=== PATIENT | male | born 1985 | race Caucasian/White ===

== ENCOUNTER 2020-12-04 21:55 | Observation (INO) ==
[2020-12-04 23:09] LABS: Basophils # 0.1 K/mcL (0.0-0.2); Basophils % 0.5 %; Eosinophils % 0.1 %; Hematocrit 43.6 % (37.5-50.1); Hemoglobin 14.6 g/dL (12.9-16.9); Immature Granulocytes % 0.3 % (0-4); Lymphocytes # 2.5 K/mcL (0.6-4.6); Lymphocytes % 16.1 %; Mean Corpuscular HGB Conc 33.5 g/dL (31.6-35.5); Mean Corpuscular Hemoglobin 29.7 pg (28.0-33.3); Mean Corpuscular Volume 88.6 fL (83.0-100.0); Mean Platelet Volume 10.5 fL (9.4-12.4); Monocytes % 6.5 %; Neutrophils # 11.7 K/mcL (1.6-8.9); Platelet Count 256 K/mcL (140-400); Red Blood Count 4.92 M/mcL (4.19-5.50); Segmented Neutrophils % 76.5 %; White Blood Count 15.3 K/mcL (4.3-11.1)
[2020-12-04 23:29] LABS: Acetaminophen < 10 mcg/mL (10-20); BUN/Creatinine Ratio 18 (6-26); Blood Urea Nitrogen 21 mg/dL (6-20); Calcium 9.7 mg/dL (8.6-10.3); Carbon Dioxide 27 mEq/L (23-29); Chloride 100 mEq/L (98-107); Chol/HDL Ratio 3.1 (0-4.9); Cholesterol 169 mg/dL (< 200); Ethanol < 10 mg/dL (Less than 10); Glucose 195 mg/dL (70-105); HDL Cholesterol 54 mg/dL (40-59); LDL Cholesterol,Calculated 98 mg/dL (< 100); Osmolality,Calculated 290 (280-300); Potassium 3.4 mEq/L (3.5-5.1); Salicylate < 2.5 mg/dL (15.0-30.0); Sodium 136 mEq/L (136-145); Triglycerides 85 mg/dL (< 150); eGFR For African Americans > 60 (> 60); eGFR For Non-African Americans > 60 (> 60)
[2020-12-05 00:30] LABS: Bilirubin,Urine Negative (Negative); Blood,Urine Negative (Negative); Clarity,Urine Clear (Clear); Color,Urine Yellow (Yellow); Glucose,Urine (UA) Normal (Normal); Ketones,Urine Negative (Negative); Leukocyte Esterase,Urine Trace (Negative); Mucus,Urine Few per lpf (None-Few); Nitrite,Urine Negative (Negative); Protein,Urine Trace mg/dL (Neg-Trace); RBC,Urine 0-3 per hpf (0-3); Squamous Epithelial Cell,Urine Few per hpf (None-Few)
[2020-12-05 00:39] LABS: Amphetamine Screen,Urine Negative ng/mL (Cutoff=1000); Barbiturate Screen,Urine Negative ng/mL (Cutoff=200); Benzodiazepines Screen,Urine Negative ng/mL (Cutoff=200); Cannabinoid Screen,Urine Positive ng/mL (Cutoff = 50); Cocaine Screen,Urine Negative ng/mL (Cutoff= 300); Opiate Screen,Urine Negative ng/mL (Cutoff=300); Phencyclidine Screen,Urine Negative ng/mL (Cutoff=25)
[2020-12-05 01:08] LABS: Estimated Average Glucose 111 mg/dl; Hemoglobin A1C 5.5 %
[2020-12-05] MEDS ORDERED: Acetaminophen 325 MG TABLET PO PRN (03:18)
[2020-12-05] MEDS ORDERED: haloperidoL 5 MG TABLET PO PRN (03:18)
[2020-12-05] MEDS ORDERED: hydrOXYzine pamoate 25 MG CAPSULE PO PRN (03:18)
[2020-12-05] MEDS ORDERED: *HR* LORazepam 2 MG/ML VIAL IM PRN (03:18)
[2020-12-05] MEDS ORDERED: Mag Hydrox/Al Hydrox/Simeth 30 ML UDC PO PRN (03:18)
[2020-12-05] MEDS ORDERED: MOM Conc 10 ML UD.LIQ PO PRN (03:18)
[2020-12-05] MEDS ORDERED: *HR* LORazepam 1 MG TABLET PO PRN (03:18)
[2020-12-05] MEDS ORDERED: Haloperidol Lactate 5 MG/ML VIAL IM PRN (03:18)
[2020-12-05] MEDS ORDERED: traZODone 50 MG TABLET PO PRN (03:18)
[2020-12-05 09:08] VITALS: BP 131/81
[2020-12-05] MEDS ORDERED: Nicotine 14 MG PATCH.TD24 TD SCH (09:15)
== END 2020-12-05 16:15 | disposition home or self-care (01) ==
LOC: EMEROOARM 21:55 → INTOOBSV 12-05 03:15 → 1ANU 12-05 03:15
PROVIDERS: ADMIT Psychiatry & Neurology Psychiatry; ATTEND Psychiatry & Neurology Psychiatry